=== PATIENT | female | born 1965 | race Caucasian/White ===

== ENCOUNTER 2016-06-27 12:31 | Emergency (ER) | payer OTHER ==
--- NOTE | 2016-06-27 15:00 | REP ---
FOUR VIEW LEFT HAND SERIES: 06/27/2016 INDICATION: Trauma. COMPARISON: Left hand series 09/10/2014. FINDINGS: There is no acute fracture, subluxation or dislocation within the left hand. Small nonspecific subchondral cystic changes again noted within the 3rd metacarpal head. The carpal bones are without fracture or displacement. A few small nonspecific subchondral cystic changes are seen in the carpal bones. There is mild to moderate osteoarthritis at the 1st carpometacarpal joint. IMPRESSION: No acute fracture or dislocation. Nonspecific arthritic changes within the left hand, yet most pronounced at the 1st carpometacarpal joint. MTDD
--- NOTE | 2016-06-27 15:09 | EDDOCDS ---
Nurse's Notes [facility] Name: Leonora David Age: 51 yrs Sex: Female : 1965 Arrival Date: 06/27/2016 Time: 12:31 Bed PR Private MD: Aguila Reyes A. Diagnosis: Pain in hand and fingers Presentation: 06/27 12:35 Presenting complaint: Patient states: reports carrying case of water yesterday and ead onset of left hand pain since. Reports hx of fracture to same hand. No obvious swelling or deformity noted. Adult Sepsis Screening: The patient does not have new or worsening altered mentation. Patient's respiratory rate is less than 22. Systolic blood pressure is greater than 100. Patient has a qSOFA score of 0- Negative Sepsis Screen. Suicide/Homicide risk assessment- the patient denies having any suicidal and/or homicidal ideations and does not present with any other emotional, behavioral or mental health complaints. Status: Patient is not a donor services technician or dependent. Transition of care: patient was not received from another setting of care. 12:35 Acuity: ROSSY Level 4 ead 12:35 Method Of Arrival: Walkin/Carried/Asstd ead Triage Assessment: 12:40 General: Appears in no apparent distress, comfortable, well nourished, well groomed, ead Behavior is appropriate for age, cooperative. Pain: Location: left hand Pain currently is 5 out of 10 on a pain scale. HIV screening NA for this visit Offered previously. Derm: Skin is pink, warm & dry. Musculoskeletal: No deformity noted Swelling absent. 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 atenolol 25 mg Oral tab once daily 2. lisinopril 2.5 mg Oral tab once daily 3. Arimidex 1 mg Oral tab once daily 4. Fish Oil Unknown oral 5. Vitamin D Oral 1,000 unit daily 6. Ranitidine Unknown Oral 7. aspirin 325 mg oral tab once daily 8. Lipitor 20 mg Oral tab once daily 9. drxvbrr-dkfqpggqe-crwt oral tab daily - PMHx: Hypercholesterolemia; Hypertension; CAD; acid reflux; - PSHx: Lumpectomy; Cholecystectomy; Tubal ligation; stent placement; - Social history: Smoking status: Patient states former smoker of tobacco. No barriers to communication noted, The patient speaks fluent Solomon Islander, Speaks appropriately for age. - Family history: Not pertinent. - : The pt / caregiver states he / she is not on anticoagulants. Home medication list is obtained from the patient. - Exposure Risk Screening:: None identified. Screenin:40 Screening information is obtained from the patient. Fall risk: No risks identified. ead Assistance ADL's: requires no assistance with activities of daily living. Abuse/DV Screen: The patient / caregiver reports he/she is: not in a situation that causes fear, pain or injury. Nutritional screening: No deficits noted. Advance Directives: Currently, there is no health care proxy. There is no active DNR order. There is no living will. There is no Power of Um Specialist. home support is adequate. Assessment: 13:25 General: Appears in no apparent distress, comfortable, Behavior is appropriate for age, ead cooperative, pleasant. Musculoskeletal: No deformity noted Swelling absent Reports pain in left hand. 15:06 General: Appears in no apparent distress, comfortable, Behavior is appropriate for age, mlb1 cooperative. Pain: Location: left thumb Pain currently is 5 out of 10 on a pain scale. Musculoskeletal: Circulation, motion, and sensation intact Capillary refill < 3 seconds in left fingers. Vital Signs: 12:33 BP 108 / 59; Pulse 76; Resp 18 S; Temp 98.7(O); Pulse Ox 97% on R/A; Weight 91.17 kg gr2 (R); Height 5 ft. 3 in. (160.02 cm) (R); Pain 6/10; 15:07 BP 125 / 85; Pulse 88; Resp 16; Temp 99.0(TE); Pulse Ox 99% on R/A; Pain 5/10; mlb1 12:33 Body Mass Index 35.61 (91.17 kg, 160.02 cm) gr2 Vitals: 12:33 Log In Time: June 27, 2016 at 12:33. gr2 ED Course: 12:33 Patient visited by Lio Garza. gr2 12:33 Aguila Reyes is Private Physician. gr2 12:33 Patient moved to Waiting gr2 12:35 Patient visited by Lio Garza. gr2 12:35 Patient moved to Pre RCE gr2 12:36 Triage Initiated ead 13:23 Patient moved to Triage 3 ead 13:25 Patient visited by Dianelys Man,RN. ead 13:33 [facility] btw 13:33 Sara Hines MD is Attending Physician. btw 13:33 Patient visited by Aniket Soriano PA. btw 13:45 Patient moved to TR2 ead 14:21 [facility] Payment Agreement was scanned into [employer] and attached to record. lg 14:38 Patient moved to PR2 / 26 jrd [facility] btw 15:06 No IV's were initiated during this patient's visit. No procedures done that require mlb1 assistance. 15:08 The patient / caregiver is instructed regarding the plan of care and ED course. mlb1 Order Results: There are currently no results for this order. Outcome: 15:01 Discharge ordered by Provider. btw 15:06 Discharge Assessment: Patient awake, alert and oriented x 3. No cognitive and/or mlb1 functional deficits noted. Patient verbalized understanding of disposition instructions. patient administered narcotics - no. The following High Risk Discharge criteria are identified: None. Discharged to home ambulatory. Condition: good. Discharge instructions given to patient, Instructed on discharge instructions, follow up and referral plans. Demonstrated understanding of instructions, Pt was receptive of discharge instructions/ teaching. No special radiology studies were completed. Property sent home with patient. 15:08 Patient left the ED. mlb1 Signatures: Sundar Mcclure, Reg Reg lg Cipriano Wilson RN RN mlb1 Aniket Soriano PA PA btw Lio Garza gr2 Dianelys Man,RN RN ead Dylan Tena, DEPUTY CORONER INVESTIGATOR DEPUTY CORONER INVESTIGATOR jrd MTDD
--- NOTE | 2016-06-27 15:09 | EDDOCDS ---
Physician Documentation [facility] Name: Leonora David Age: 51 yrs Sex: Female : 1965 Arrival Date: 06/27/2016 Time: 12:31 Bed PR Private MD: Aguila Reyes A. Disposition: 06/27/16 15:01 Discharged to Home/Self Care. Impression: Pain in hand and fingers. - Condition is Stable. - Discharge Instructions: Thumb Sprain. - Medication Reconciliation, Local Pharmacy Hours form. - Follow up: Orthopaedics, [facility]; When: Call to arrange an appointment; Reason: Further diagnostic work-up, Recheck today's complaints, Continuance of care. - Problem is new. - Symptoms are unchanged. Historical: - Allergies: Adhesives; Tessalon Perles; - Home Meds: 1. atenolol 25 mg Oral tab once daily 2. lisinopril 2.5 mg Oral tab once daily 3. Arimidex 1 mg Oral tab once daily 4. Fish Oil Unknown oral 5. Vitamin D Oral 1,000 unit daily 6. Ranitidine Unknown Oral 7. aspirin 325 mg oral tab once daily 8. Lipitor 20 mg Oral tab once daily 9. sctltty-dawobkhxd-iawu oral tab daily - PMHx: Hypercholesterolemia; Hypertension; CAD; acid reflux; - PSHx: Lumpectomy; Cholecystectomy; Tubal ligation; stent placement; - Social history: Smoking status: Patient states former smoker of tobacco. No barriers to communication noted, The patient speaks fluent Omani, Speaks appropriately for age. - Family history: Not pertinent. - : The pt / caregiver states he / she is not on anticoagulants. Home medication list is obtained from the patient. - Exposure Risk Screening:: None identified. 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 3 in. (160.02 cm) (R); Pain 6/10; 15:07 BP 125 / 85; Pulse 88; Resp 16; Temp 99.0(TE); Pulse Ox 99% on R/A; Pain 5/10; mlb1 12:33 Body Mass Index 35.61 (91.17 kg, 160.02 cm) gr2 MDM: 13:46 Hand, Complete Ordered. EDMS 13:54 Financial registration complete. lg 14:21 [facility] Payment Agreement was scanned into [employer] and attached to record. lg 14:35 Splint Affected Extremity ordered. btw Signatures: Dispatcher [employer] EDMS Sundar Mcclure, Reg Reg lg Cipriano Wilson RN RN mlb1 Aniket Soriano PA PA btw Dianelys Man,RN RN ead The chart was reviewed and I authenticate all verbal orders and agree with the evaluation and treatment provided.Attachments: 14:21 [facility] Payment Agreement lg MTDD
--- NOTE | 2016-06-29 16:08 | EDDOCDS ---
Physician Documentation [facility] Name: Leonora David Age: 51 yrs Sex: Female : 1965 Arrival Date: 06/27/2016 Time: 12:31 Bed PR Private MD: Aguila Reyes A. Disposition: 06/27/16 15:01 Discharged to Home/Self Care. Impression: Pain in hand and fingers. - Condition is Stable. - Discharge Instructions: Thumb Sprain. - Medication Reconciliation, Local Pharmacy Hours form. - Follow up: Orthopaedics, [facility]; When: Call to arrange an appointment; Reason: Further diagnostic work-up, Recheck today's complaints, Continuance of care. - Problem is new. - Symptoms are unchanged. Historical: - Allergies: Adhesives; Tessalon Perles; - Home Meds: 1. atenolol 25 mg Oral tab once daily 2. lisinopril 2.5 mg Oral tab once daily 3. Arimidex 1 mg Oral tab once daily 4. Fish Oil Unknown oral 5. Vitamin D Oral 1,000 unit daily 6. Ranitidine Unknown Oral 7. aspirin 325 mg oral tab once daily 8. Lipitor 20 mg Oral tab once daily 9. nhkhies-vwlqvskya-lpvq oral tab daily - PMHx: Hypercholesterolemia; Hypertension; CAD; acid reflux; - PSHx: Lumpectomy; Cholecystectomy; Tubal ligation; stent placement; - Social history: Smoking status: Patient states former smoker of tobacco. No barriers to communication noted, The patient speaks fluent Latvian, Speaks appropriately for age. - Family history: Not pertinent. - : The pt / caregiver states he / she is not on anticoagulants. Home medication list is obtained from the patient. - Exposure Risk Screening:: None identified. 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 3 in. (160.02 cm) (R); Pain 6/10; 15:07 BP 125 / 85; Pulse 88; Resp 16; Temp 99.0(TE); Pulse Ox 99% on R/A; Pain 5/10; mlb1 12:33 Body Mass Index 35.61 (91.17 kg, 160.02 cm) gr2 MDM: 13:46 Hand, Complete Ordered. EDMS 13:54 Financial registration complete. lg 14:21 COUNTS INCLUDE 234 BEDS AT THE [facility] Payment Agreement was scanned into [employer] and attached to record. lg 14:35 Splint Affected Extremity ordered. btw 06/28 12:13 T-Sheet-- Draft Copy was scanned into [employer] and attached to record. gb Signatures: Dispatcher [employer] EDMS Jasmin Perez, Reg Reg gb Sundar Mcclure, Reg Reg lg Cipriano Wilson RN RN mlb1 Aniket Soriano PA PA btw Dianelys Man,RN RN miriam The chart was reviewed and I authenticate all verbal orders and agree with the evaluation and treatment provided.Attachments: 06/27 14:21 COUNTS INCLUDE 234 BEDS AT THE [facility] Payment Agreement lg 06/28 12:13 T-Sheet-- Draft Copy gb Chart Complete MTDD
--- NOTE | 2016-06-29 16:08 | EDDOCDS ---
Nurse's Notes [facility] Name: Leonora David Age: 51 yrs Sex: Female : 1965 Arrival Date: 06/27/2016 Time: 12:31 Bed PR Private MD: Aguila Reyes A. Diagnosis: Pain in hand and fingers Presentation: 06/27 12:35 Presenting complaint: Patient states: reports carrying case of water yesterday and ead onset of left hand pain since. Reports hx of fracture to same hand. No obvious swelling or deformity noted. Adult Sepsis Screening: The patient does not have new or worsening altered mentation. Patient's respiratory rate is less than 22. Systolic blood pressure is greater than 100. Patient has a qSOFA score of 0- Negative Sepsis Screen. Suicide/Homicide risk assessment- the patient denies having any suicidal and/or homicidal ideations and does not present with any other emotional, behavioral or mental health complaints. Status: Patient is not a conference service coordinator or dependent. Transition of care: patient was not received from another setting of care. 12:35 Acuity: ROSSY Level 4 ead 12:35 Method Of Arrival: Walkin/Carried/Asstd ead Triage Assessment: 12:40 General: Appears in no apparent distress, comfortable, well nourished, well groomed, ead Behavior is appropriate for age, cooperative. Pain: Location: left hand Pain currently is 5 out of 10 on a pain scale. HIV screening NA for this visit Offered previously. Derm: Skin is pink, warm & dry. Musculoskeletal: No deformity noted Swelling absent. 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 atenolol 25 mg Oral tab once daily 2. lisinopril 2.5 mg Oral tab once daily 3. Arimidex 1 mg Oral tab once daily 4. Fish Oil Unknown oral 5. Vitamin D Oral 1,000 unit daily 6. Ranitidine Unknown Oral 7. aspirin 325 mg oral tab once daily 8. Lipitor 20 mg Oral tab once daily 9. xgerpjb-jjnmftmjb-exyr oral tab daily - PMHx: Hypercholesterolemia; Hypertension; CAD; acid reflux; - PSHx: Lumpectomy; Cholecystectomy; Tubal ligation; stent placement; - Social history: Smoking status: Patient states former smoker of tobacco. No barriers to communication noted, The patient speaks fluent Citizen Of [place], Speaks appropriately for age. - Family history: Not pertinent. - : The pt / caregiver states he / she is not on anticoagulants. Home medication list is obtained from the patient. - Exposure Risk Screening:: None identified. Screenin:40 Screening information is obtained from the patient. Fall risk: No risks identified. ead Assistance ADL's: requires no assistance with activities of daily living. Abuse/DV Screen: The patient / caregiver reports he/she is: not in a situation that causes fear, pain or injury. Nutritional screening: No deficits noted. Advance Directives: Currently, there is no health care proxy. There is no active DNR order. There is no living will. There is no Power of Housekeeping Room Attendant. home support is adequate. Assessment: 13:25 General: Appears in no apparent distress, comfortable, Behavior is appropriate for age, ead cooperative, pleasant. Musculoskeletal: No deformity noted Swelling absent Reports pain in left hand. 15:06 General: Appears in no apparent distress, comfortable, Behavior is appropriate for age, mlb1 cooperative. Pain: Location: left thumb Pain currently is 5 out of 10 on a pain scale. Musculoskeletal: Circulation, motion, and sensation intact Capillary refill < 3 seconds in left fingers. Vital Signs: 12:33 BP 108 / 59; Pulse 76; Resp 18 S; Temp 98.7(O); Pulse Ox 97% on R/A; Weight 91.17 kg gr2 (R); Height 5 ft. 3 in. (160.02 cm) (R); Pain 6/10; 15:07 BP 125 / 85; Pulse 88; Resp 16; Temp 99.0(TE); Pulse Ox 99% on R/A; Pain 5/10; mlb1 12:33 Body Mass Index 35.61 (91.17 kg, 160.02 cm) gr2 Vitals: 12:33 Log In Time: June 27, 2016 at 12:33. gr2 ED Course: 12:33 Patient visited by Lio Garza. gr2 12:33 Aguila Reyes is Private Physician. gr2 12:33 Patient moved to Waiting gr2 12:35 Patient visited by Lio Garza. gr2 12:35 Patient moved to Pre RCE gr2 12:36 Triage Initiated ead 13:23 Patient moved to Triage 3 ead 13:25 Patient visited by Dainelys Man RN. ead 13:33 Aniket Soriano PA is PHCP. btw 13:33 Sara Hines MD is Attending Physician. btw 13:33 Patient visited by Aniket Soriano PA. btw 13:45 Patient moved to TR2 ead 14:21 [facility]END[facility] TO [facility] Payment Agreement was scanned into [employer] and attached to record. lg 14:38 Patient moved to PR2 / 26 jrd 15:01 [facility] btw 15:06 No IV's were initiated during this patient's visit. No procedures done that require mlb1 assistance. 15:08 The patient / caregiver is instructed regarding the plan of care and ED course. mlb1 15:26 Hand, Complete Returned. EDMS 06/28 12:13 T-Sheet-- Draft Copy was scanned into [employer] and attached to record. gb Order Results: Radiology Order: Hand, Complete Test: Hand, Complete REASON FOR EXAMINATION: Trauma; ; FOUR VIEW LEFT HAND SERIES: 06/27/2016; ; INDICATION: Trauma.; ; COMPARISON: Left hand series 09/10/2014.; ; FINDINGS: There is no acute fracture, subluxation or dislocation within the left; hand. Small nonspecific subchondral cystic changes again noted within the 3rd; metacarpal head. The carpal bones are without fracture or displacement. A few; small nonspecific subchondral cystic changes are seen in the carpal bones.; There; is mild to moderate osteoarthritis at the 1st carpometacarpal joint.; ; IMPRESSION:; No acute fracture or dislocation.; Nonspecific arthritic changes within the left hand, yet most pronounced at the; 1st carpometacarpal joint.; ; ; MTDD Outcome: 06/27 15:01 Discharge ordered by Provider. btw 15:06 Discharge Assessment: Patient awake, alert and oriented x 3. No cognitive and/or mlb1 functional deficits noted. Patient verbalized understanding of disposition instructions. patient administered narcotics - no. The following High Risk Discharge criteria are identified: None. Discharged to home ambulatory. Condition: good. Discharge instructions given to patient, Instructed on discharge instructions, follow up and referral plans. Demonstrated understanding of instructions, Pt was receptive of discharge instructions/ teaching. No special radiology studies were completed. Property sent home with patient. 15:08 Patient left the ED. mlb1 Signatures: Dispatcher [employer] EDMS Jasmin Perez, Reg Reg gb Sundar Mcclure, Reg Reg lg Steve, Cipriano Pisano, RN RN mlb1 Aniket Soriano PA PA btw Lio Garza gr2 Dianelys Man,RN RN Dylan Escalante PCA PCA jrwilmer Chart Complete MTDD
--- NOTE | 2016-06-29 16:08 | EDDOCDS ---
Physician Documentation [facility] Name: Leonora David Age: 51 yrs Sex: Female : 1965 Arrival Date: 06/27/2016 Time: 12:31 Bed PR Private MD: Aguila Reyes A. Disposition: 06/27/16 15:01 Discharged to Home/Self Care. Impression: Pain in hand and fingers. - Condition is Stable. - Discharge Instructions: Thumb Sprain. - Medication Reconciliation, Local Pharmacy Hours form. - Follow up: Orthopaedics, [facility]; When: Call to arrange an appointment; Reason: Further diagnostic work-up, Recheck today's complaints, Continuance of care. - Problem is new. - Symptoms are unchanged. Historical: - Allergies: Adhesives; Tessalon Perles; - Home Meds: 1. atenolol 25 mg Oral tab once daily 2. lisinopril 2.5 mg Oral tab once daily 3. Arimidex 1 mg Oral tab once daily 4. Fish Oil Unknown oral 5. Vitamin D Oral 1,000 unit daily 6. Ranitidine Unknown Oral 7. aspirin 325 mg oral tab once daily 8. Lipitor 20 mg Oral tab once daily 9. ymcipcf-bigzhyihv-ziev oral tab daily - PMHx: Hypercholesterolemia; Hypertension; CAD; acid reflux; - PSHx: Lumpectomy; Cholecystectomy; Tubal ligation; stent placement; - Social history: Smoking status: Patient states former smoker of tobacco. No barriers to communication noted, The patient speaks fluent Iraqi, Speaks appropriately for age. - Family history: Not pertinent. - : The pt / caregiver states he / she is not on anticoagulants. Home medication list is obtained from the patient. - Exposure Risk Screening:: None identified. 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 3 in. (160.02 cm) (R); Pain 6/10; 15:07 BP 125 / 85; Pulse 88; Resp 16; Temp 99.0(TE); Pulse Ox 99% on R/A; Pain 5/10; mlb1 12:33 Body Mass Index 35.61 (91.17 kg, 160.02 cm) gr2 MDM: 13:46 Hand, Complete Ordered. EDMS 13:54 Financial registration complete. lg 14:21 [facility] Payment Agreement was scanned into [employer] and attached to record. lg 14:35 Splint Affected Extremity ordered. btw 06/28 12:13 T-Sheet-- Draft Copy was scanned into [employer] and attached to record. gb Signatures: Dispatcher [employer] EDMS Jasmin Perez, Reg Reg gb Sundar Mcclure, Reg Reg lg Cipriano Wilson RN RN mlb1 Aniket Soriano PA PA btw Dianelys Man,RN RN miriam The chart was reviewed and I authenticate all verbal orders and agree with the evaluation and treatment provided.Attachments: 06/27 14:21 [facility] Payment Agreement lg 06/28 12:13 T-Sheet-- Draft Copy gb Chart Complete MTDD
== END 2016-06-27 15:08 | disposition home or self-care (01) ==
LOC: M ED 12:31
DX: S63.062A Subluxation of metacarpal (bone), proximal end of left hand, initial encounter (principal); X50.9XXA Other and unspecified overexertion or strenuous movements or postures, initial encounter; Y92.89 Other specified places as the place of occurrence of the external cause; Y93.89 Activity, other specified; Y99.0 Civilian activity done for income or pay; E78.00 Pure hypercholesterolemia, unspecified; I10 Essential (primary) hypertension; I25.10 Atherosclerotic heart disease of native coronary artery without angina pectoris; K21.9 Gastro-esophageal reflux disease without esophagitis; Z87.891 Personal history of nicotine dependence; Z79.899 Other long term (current) drug therapy; Z79.82 Long term (current) use of aspirin; Z88.8 Allergy status to other drugs, medicaments and biological substances

== ENCOUNTER → 2016-12-06 | Outpatient (CLI) | payer OTHER ==
--- NOTE | 2016-12-06 17:40 | REP ---
Clinical: Trauma. Technique: AP, lateral, bilateral oblique views of the right foot. Findings: There is an oblique fracture of the fifth metatarsal bone of indeterminate age. No other acute fracture dislocation is appreciated age related changes noted no subcutaneous emphysema or radiodense foreign body. Lateral view demonstrates small calcaneal heal spur. Impression: Oblique fracture through the fifth metatarsal bone of indeterminate age. Signed by Rodger Silveira MD 12/06/2016 05:31 P
== END ==
LOC: M RAD 16:56
PROVIDERS: ATTEND Physician Assistant Medical
DX: S92.351A Displaced fracture of fifth metatarsal bone, right foot, initial encounter for closed fracture (principal); X58.XXXA Exposure to other specified factors, initial encounter; Y92.89 Other specified places as the place of occurrence of the external cause; Y93.89 Activity, other specified; Y99.8 Other external cause status

== ENCOUNTER → 2017-03-27 | Outpatient (CLI) | payer OTHER ==
--- NOTE | 2017-03-27 19:20 | REP ---
RIGHT CLAVICLE: 03/27/2017. Clinical history: Injury to right clavicle and shoulder while at work. I do note a history of left breast carcinoma with multi modality treatment back in 2006. Findings: There were no prior studies. There is a mid shaft fracture of the right clavicle. There appear to be scattered lucencies in the bone and loss of some cortical margins. Lytic lesion is seen near the expected position of the coracoclavicular ligaments. The AC joint shows some degenerative change. Visualized ribs, scapula and humerus are without focal lesion or fracture. Impression: 1. There is a mid shaft fracture of the clavicle with a 1/3 to 1/2 shaft width inferior displacement of the lateral fragment. The AC joint is not disrupted. However, the bone appears abnormal and I am suspicious for pathologic fracture. The patient does have a history of breast carcinoma 10 years ago. I could not exclude pathologic bone with sclerotic and lytic changes in the bone, subtle but with loss of cortex and some scattered lucencies. Further evaluation and workup will be necessary. A wet reading was provided per request at the time of the examination. Signed by Franko Arrington MD 03/27/2017 08:16 P
== END ==
LOC: M WUC 18:23
PROVIDERS: ATTEND Physician Assistant
DX: M25.511 Pain in right shoulder (principal)

== ENCOUNTER → 2017-06-16 | Outpatient (CLI) | payer OTHER | LOC: M WHC 10:02 | DX: M81.0 Age-related osteoporosis without current pathological fracture (principal) ==

== ENCOUNTER → 2017-07-04 | Outpatient (CLI) | payer OTHER ==
[2017-07-04 14:58] LABS: BASO # 0.1 10^3/uL (0.0-0.2); BASO % 0.7 % (0.0-1.0); EOS # 0.1 10^3/uL (0.0-0.50); EOS % 1.1 % (0.0-3.0); HEMATOCRIT 41.8 % (36.0-47.0); HEMOGLOBIN 13.8 g/dl (12.0-16.0); IMMATURE GRANULOCYTE % 0.5 % (0-0); LYMPH # 3.6 10^3/uL (1.5-4.5); LYMPH % 40.9 % (24.0-44.0); MEAN CORPUSCULAR HEMOGLOBIN 30.1 pg (27.0-33.0); MEAN CORPUSCULAR VOLUME 91.3 fl (80.0-96.0); MONO # 0.9 10^3/uL (0.0-0.8); MONO % 9.6 % (0.0-5.0); NEUTROPHILS # 4.2 10^3/uL (1.8-7.7); NEUTROPHILS % 47.2 % (36.0-66.0); PLATELET COUNT, AUTOMATED 294 10^3/uL (150-450); RED BLOOD COUNT 4.58 10^6/uL (4.00-5.40); WHITE BLOOD COUNT 8.8 10^3/uL (4.0-10.0)
[2017-07-04 15:02] LABS: ESTIMATED AVERAGE GLUCOSE 157 MG/DL (60-110); HEMOGLOBIN A1c 7.1 %
[2017-07-04 15:15] LABS: ALBUMIN 3.9 GM/DL (3.2-5.2); ALBUMIN/GLOBULIN RATIO 1.26 (1.00-1.93); ALKALINE PHOSPHATASE 89 U/L (45-117); ALT/SGPT 37 U/L (12-78); ANION GAP 5 MEQ/L (8-16); AST/SGOT 22 U/L (7-37); BILIRUBIN,TOTAL 0.5 MG/DL (0.2-1.0); BLOOD UREA NITROGEN 14 MG/DL (7-18); CALCIUM LEVEL 9.4 MG/DL (8.5-10.1); CARBON DIOXIDE LEVEL 31 MEQ/L (21-32); CHLORIDE LEVEL 103 MEQ/L (98-107); CREATININE FOR GFR 0.57 MG/DL (0.55-1.02); GLOMERULAR FILTRATION RATE > 60.0 (>51); GLUCOSE, FASTING 138 MG/DL (70-100); POTASSIUM SERUM 4.8 MEQ/L (3.5-5.1); SODIUM LEVEL 139 MEQ/L (136-145)
[2017-07-04 15:22] LABS: TOTAL 25(OH) VITAMIN D 26.2 NG/ML (30.0-100.0)
== END ==
LOC: M SMT 12:03
DX: E11.9 Type 2 diabetes mellitus without complications (principal); Z79.899 Other long term (current) drug therapy
CPT/HCPCS: 80053

== ENCOUNTER → 2017-07-15 | Outpatient (REF) | payer OTHER ==
[2017-07-15 13:02] LABS: PTH INTACT 24.7 PG/ML (14.0-72.0)
== END ==
LOC: M LABDRAW1 10:35
DX: M85.9 Disorder of bone density and structure, unspecified (principal)

== ENCOUNTER → 2018-01-12 | Outpatient (CLI) | payer OTHER | LOC: M WUC 11:19 | DX: R05 Cough (principal) | CPT/HCPCS: 71046 ==

== ENCOUNTER → 2018-01-13 | Outpatient (REF) | payer OTHER ==
[2018-01-13 18:53] LABS: INR 0.97
[2018-01-13 18:54] LABS: PARTIAL THROMBOPLASTIN TIME 27.1 SECONDS (25.4-37.6)
[2018-01-13 20:00] LABS: CA15-3 ANTIGEN 21.7 U/ML (<32.4)
[2018-01-16 00:08] LABS: CA 27.29 33.2 U/mL (0.0-38.6)
== END ==
LOC: M LAB REF 17:08
DX: Z08 Encounter for follow-up examination after completed treatment for malignant neoplasm (principal); Z85.3 Personal history of malignant neoplasm of breast; Z87.81 Personal history of (healed) traumatic fracture; Z87.312 Personal history of (healed) stress fracture

== ENCOUNTER → 2018-01-19 | Outpatient (CLI) | payer OTHER ==
[~2018-01-19] MED LIST: LIDOCAINE 1% MDV 20ML VIAL As Ordered
== END ==
LOC: M RADPRO 12:14
DX: C79.51 Secondary malignant neoplasm of bone (principal); Z79.4 Long term (current) use of insulin; Z79.899 Other long term (current) drug therapy; E11.9 Type 2 diabetes mellitus without complications; Z88.8 Allergy status to other drugs, medicaments and biological substances; Z91.048 Other nonmedicinal substance allergy status; Z85.3 Personal history of malignant neoplasm of breast
CPT/HCPCS: 20220

== ENCOUNTER → 2018-01-20 | Outpatient (CLI) | payer OTHER | LOC: M PLARAD 07:45 | DX: C50.919 Malignant neoplasm of unspecified site of unspecified female breast (principal) | CPT/HCPCS: 78815 ==

== ENCOUNTER → 2018-01-29 | Outpatient (CLI) | payer OTHER ==
[~2018-01-29] MED LIST changes: +GASTROGRAFIN SOLUTION 30ML (Q9963) As Ordered; +ISOVUE-370 76% 100ML VIAL (Q9967) As Ordered; -LIDOCAINE 1% MDV 20ML VIAL As Ordered
== END ==
LOC: M RAD 08:21
DX: C50.919 Malignant neoplasm of unspecified site of unspecified female breast (principal); I25.10 Atherosclerotic heart disease of native coronary artery without angina pectoris; I70.0 Atherosclerosis of aorta; K76.0 Fatty (change of) liver, not elsewhere classified; M19.041 Primary osteoarthritis, right hand; M19.042 Primary osteoarthritis, left hand; M19.071 Primary osteoarthritis, right ankle and foot
CPT/HCPCS: Q9963

== ENCOUNTER → 2018-02-12 | Outpatient (REF) | payer OTHER ==
[2018-02-14 00:08] LABS: CA 27.29 25.6 U/mL (0.0-38.6)
== END ==
LOC: M LAB REF 14:17
DX: C79.51 Secondary malignant neoplasm of bone (principal); Z85.3 Personal history of malignant neoplasm of breast; C50.212 Malignant neoplasm of upper-inner quadrant of left female breast; Z17.0 Estrogen receptor positive status [ER+]

== ENCOUNTER 2018-02-13 09:55 | Outpatient (RCR) | payer OTHER | END 2018-03-08 | LOC: M ONCR 09:55 | DX: C79.51 Secondary malignant neoplasm of bone (principal); C50.212 Malignant neoplasm of upper-inner quadrant of left female breast | CPT/HCPCS: 77300 ==

== ENCOUNTER 2018-03-09 09:49 | Outpatient (RCR) | payer OTHER | END 2018-04-08 | LOC: M ONCR 03-10 09:47 | DX: C79.51 Secondary malignant neoplasm of bone (principal); C50.212 Malignant neoplasm of upper-inner quadrant of left female breast | CPT/HCPCS: 77336 ==

== ENCOUNTER 2018-04-06 12:01 | Outpatient (RCR) | payer OTHER | END 2018-04-08 | LOC: M PT 12:01 | DX: Z51.89 Encounter for other specified aftercare (principal); M84.511A Pathological fracture in neoplastic disease, right shoulder, initial encounter for fracture | CPT/HCPCS: 97110 ==

== ENCOUNTER → 2018-04-15 | Outpatient (CLI) | payer OTHER | LOC: M ONCR 10:09 | DX: C50.912 Malignant neoplasm of unspecified site of left female breast (principal) | CPT/HCPCS: G0463 ==

== ENCOUNTER → 2018-06-23 | Outpatient (CLI) | payer OTHER ==
[~2018-06-23] MED LIST changes: +ASPI-222 PO; +ATEN25TA PO; +ATOR40TA75 PO; +CALC600T60 PO; -GASTROGRAFIN SOLUTION 30ML (Q9963) As Ordered; -ISOVUE-370 76% 100ML VIAL (Q9967) As Ordered; +LISI-538 PO; +MAGN250T11 PO; +METF-414 PO; +VITA100066 PO
[2018-06-23 13:53] LABS: EOS % 0.7 % (0.0-3.0); HEMATOCRIT 36.1 % (36.0-47.0); HEMOGLOBIN 12.3 g/dl (12.0-15.5); LYMPH # 1.8 10^3/uL (1.5-4.5); LYMPH % 43.4 % (24.0-44.0); MEAN CORPUSCULAR HEMOGLOBIN 36.3 pg (27.0-33.0); MEAN CORPUSCULAR HGB CONC 34.1 g/dl (32.0-36.5); MEAN CORPUSCULAR VOLUME 106.5 fl (80.0-96.0); MONO # 0.7 10^3/uL (0.0-0.8); MONO % 16.1 % (0.0-5.0); NEUTROPHILS # 1.6 10^3/uL (1.8-7.7); NEUTROPHILS % 38.8 % (36.0-66.0); PLATELET COUNT, AUTOMATED 196 10^3/uL (150-450); RED BLOOD COUNT 3.39 10^6/uL (4.00-5.40); WHITE BLOOD COUNT 4.1 10^3/uL (4.0-10.0)
[2018-06-23 14:17] LABS: ALBUMIN 3.6 GM/DL (3.2-5.2); ALT/SGPT 41 U/L (12-78); BILIRUBIN,TOTAL 0.5 MG/DL (0.2-1.0); BLOOD UREA NITROGEN 13 MG/DL (7-18); CALCIUM LEVEL 9.2 MG/DL (8.5-10.1); CARBON DIOXIDE LEVEL 28 MEQ/L (21-32); CHLORIDE LEVEL 102 MEQ/L (98-107); CHOLESTEROL LEVEL 103 MG/DL (<200); CHOLESTEROL RISK RATIO 2.575 (<5); CREATININE FOR GFR 0.68 MG/DL (0.55-1.30); GLOMERULAR FILTRATION RATE > 60.0 (>51); GLUCOSE, FASTING 135 MG/DL (70-100); HDL CHOLESTEROL 40 MG/DL (>40); LDL CHOLESTEROL 38 MG/DL (<100); NON-HDL-C 63 MG/DL; POTASSIUM SERUM 4.9 MEQ/L (3.5-5.1); SODIUM LEVEL 138 MEQ/L (136-145); TOTAL PROTEIN 6.8 GM/DL (6.4-8.2); TRIGLYCERIDES LEVEL 124 MG/DL (<150)
[2018-06-23 14:42] LABS: MALB URINE SIEMENS 19.3 MG/L; MAU/CREAT RATIO 10.2 MCG/MG (0.0-30.0)
[2018-06-23 15:25] LABS: TOTAL 25(OH) VITAMIN D 36.4 NG/ML (30.0-100.0)
[2018-06-23 15:29] LABS: HEMOGLOBIN A1c 7.3 %
== END ==
LOC: M SMT 08:04
PROVIDERS: ATTEND Family Medicine
DX: E55.9 Vitamin D deficiency, unspecified (principal); E11.9 Type 2 diabetes mellitus without complications

== ENCOUNTER → 2018-08-24 | Outpatient (CLI) | payer OTHER ==
[~2018-08-24] MED LIST changes: +AMOX875T PO; +EQL50TAB4 PO; +FISH1000 PO; +IBRA125C PO; +ISOVUE-370 76% 125ML VIAL (Q9967 PER ML) As Ordered ONE; +LETR2.5T2 PO
--- NOTE | 2018-08-31 14:24 | REP ---
CT CHEST WITH IV CONTRAST: REPEAT DICTATION. HISTORY: Breast cancer. Restaging. Ill-defined opacities bilateral lower lobes on prior chest CT study, 06/05/2018. COMPARISON: Chest CT study June 05, 2018 and January 29, 2018. CT CONTRAST DOSE: 75 mL of intravenous Isovue 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 This is unchanged. There is no other visualized bony destructive lesion. The previously noted paraspinal ill-defined parenchymal opacity in the subpleural region of the lower lobes bilaterally posteriorly and medially is less prominent than on prior CT study. This is consistent with fibrosis adjacent to degenerative disc changes in the thoracic spine. No new pulmonary nodule is appreciated. No pulmonary mass lesion is observed. Vascular calcification is noted including left coronary artery vascular calcification. No other vascular abnormality is seen. No hilar or mediastinal mass or adenopathy is observed. There is moderate diffuse fatty infiltration in the liver. No adrenal lesion is seen. IMPRESSION: Stable mixed predominantly sclerotic metastatic lesion in the right clavicle. The paraspinal pattern of increased density in the lower lobes as seen previously has improved and has a linear morphology consistent with fibrosis and/or atelectasis associated with degenerative disc disease in the adjacent thoracic spine. There is fatty infiltration of the liver. Electronically Signed by Vin Moya MD 08/31/2018 02:30 P
== END ==
LOC: M RAD 13:02
PROVIDERS: ATTEND Nurse Practitioner Family
DX: C50.919 Malignant neoplasm of unspecified site of unspecified female breast (principal); C79.51 Secondary malignant neoplasm of bone; M51.84 Other intervertebral disc disorders, thoracic region; K76.0 Fatty (change of) liver, not elsewhere classified; R91.8 Other nonspecific abnormal finding of lung field; Z98.890 Other specified postprocedural states
CPT/HCPCS: 71260; 77080; Q9967

== ENCOUNTER → 2018-08-24 | Outpatient (CLI) | payer OTHER ==
[~2018-08-24] MED LIST changes: -ISOVUE-370 76% 125ML VIAL (Q9967 PER ML) As Ordered ONE
--- NOTE | 2018-08-27 13:42 | DEXA ---
AP SPINE L1 - L4 1.189 0.0 0.8 LT FEMUR TOTAL 1.096 0.7 1.4 LT NECK 1.030 -0.1 1.0 RT FEMUR TOTAL 1.029 0.2 0.8 RT NECK 0.870 -1.2 -0.2 TOTAL BODY TOTAL OTHER COMMENTS: Normal bone densitometry of the spine. Normal bone densitometry of the left hip. There is low bone density of the right hip. The increased density of the spine does represent a significant change. The increased density of the left hip does represent a significant change. The decreased density of the right hip does not represent a significant change. The density of the spine has increased 7.4% since the initial exam on 07/10/2009. The spine density has increased 2.8% since the most recent exam on 06/16/17. The density of the left hip has decreased 2.0% since the initial exam on 07/10/2009. The density of the left hip has increased 8.9% since the most recent exam on 06/16/2017. The density of the right hip has decreased 7.2% since the initial exam on 07/10/2009. The density of the right hip has decreased 0.8% since the most recent exam on 06/16/2017. FOLLOW-UP: Recommendation for the next bone density exam: 2 years. JACOB
== END ==
LOC: M WHC 10:49
PROVIDERS: ATTEND Nurse Practitioner Family
DX: C50.919 Malignant neoplasm of unspecified site of unspecified female breast (principal); M85.851 Other specified disorders of bone density and structure, right thigh

== ENCOUNTER → 2018-12-02 | Outpatient (CLI) | payer OTHER ==
[~2018-12-02] MED LIST changes: -EQL50TAB4 PO; +XGEVINJ SC; +ZINC1TAB2 PO
--- NOTE | 2018-12-02 09:30 | REP ---
Clinical: Bilateral lower extremity pain . Technique: Arce scale and color Doppler evaluation using linear high frequency transducer. Findings: Ultrasound examination of the right and left lower extremity deep venous structures from the common femoral vein to the popliteal vein demonstrates normal compressibility flow and wave patterns in response to respiration and augmentation. There is no evidence for deep venous thrombosis. Impression: No evidence for deep venous thrombosis. Electronically Signed by Rodger Silveira MD 12/02/2018 09:22 A
== END ==
LOC: M RAD 08:33
PROVIDERS: ATTEND Internal Medicine Medical Oncology
DX: M79.604 Pain in right leg (principal); M79.605 Pain in left leg

== ENCOUNTER → 2018-12-28 | Outpatient (REF) | payer OTHER ==
[2018-12-28 11:40] LABS: HEMOGLOBIN A1c 7.1 %
== END ==
LOC: M LAB REF 10:45
PROVIDERS: ATTEND Family Medicine
DX: E11.9 Type 2 diabetes mellitus without complications (principal)

== ENCOUNTER → 2019-01-19 | Outpatient (CLI) | payer OTHER ==
[~2019-01-19] MED LIST changes: +SLOWTAB2 PO
--- NOTE | 2019-01-20 09:33 | REP ---
PET/CT: History: Monitoring response to breast cancer. Comparisons: Comparison PET/CT January 20, 2018. TECHNIQUE: 51 minutes following the intravenous injection of a 7.97 mCi dose of F-18 FDG, three-dimensional PET scintigraphy is acquired from the skull base to the proximal thighs. Triplanar noncontrast CT scanning is acquired through the same anatomic range for attenuation correction, and image registration with scan parameters optimized to minimize radiation exposure to the patient. PET scintigraphy and CT datasets were fused and displayed on a workstation with multiplanar and projection display capability. PET/CT Findings: Previous study showed hypermetabolic uptake in a known bony metastasis in the right clavicle. On today's PET scintigraphy, there is no longer hypermetabolic uptake here. There is abnormal sclerosis which may represent healing and remodeling in the right clavicle and there is a nondisplaced ununited fracture in the clavicle but no hypermetabolic uptake is appreciated. Maximum standard uptake value 1.88, previously 0.9. No new skeletal focus of hypermetabolic uptake is seen. There is no other abnormal hypermetabolic uptake. There is sclerosis in the right side of the symphysis pubis without hypermetabolic uptake. This may be degenerative. It is unchanged from the prior study and it was not hypermetabolic previously. No abnormal hypermetabolic uptake is seen in the abdomen or pelvis. No abnormal hepatic uptake. Impression: No abnormal hypermetabolic uptake seen. Sclerotic changes in the known right clavicular metastasis consistent with healing and reactive mineral deposition. There is an area of sclerosis in the right symphysis also without hypermetabolic uptake. Electronically Signed by Vin Moya MD 01/20/2019 08:52 P
== END ==
LOC: M PLARAD 12:30
PROVIDERS: ATTEND Nurse Practitioner Family
DX: C50.212 Malignant neoplasm of upper-inner quadrant of left female breast (principal)

== ENCOUNTER 2019-08-08 21:17 | Emergency (ER) | payer OTHER ==
[~2019-08-08] VITALS: Ht 160 cm; Wt 93.2 kg
[~2019-08-08 21:17] MED LIST changes: -ASPI-222 PO; +ASPI-527 PO; +CLOT1CRE71
--- NOTE | 2019-08-09 00:25 | REPVR ---
PROCEDURE INFORMATION: Exam: US Duplex Left Lower Extremity Veins, Limited Exam date and time: 08/08/2019 11:43 PM Age: 54 years old Clinical indication: Pain; Other: Knee; Additional info: Erythema/warmth, edema, tender vericosity medial left knee TECHNIQUE: Imaging protocol: Real-time Duplex ultrasound of the Left Lower Extremity with 2-D hutson scale, color Doppler flow and spectral waveform analysis with image documentation. Limited exam focused on the left lower extremity veins. COMPARISON: US Duplex, Ext LOWER veins, bilat 12/02/2018 8:57 AM FINDINGS: Left deep veins: Unremarkable. The common femoral, femoral, proximal profunda femoral and popliteal veins are patent without thrombus. Normal Doppler waveforms. Normal compressibility and/or augmentation response. Left superficial veins: Unremarkable. Saphenofemoral junction is patent without thrombus. Soft tissues: Unremarkable. IMPRESSION: No acute findings. No evidence of deep vein thrombosis. Electronically signed by: Deo Solares On 08/09/2019 00:25:10 AM
[2019-08-09 00:52] VITALS: BP 132/70
== END 2019-08-09 00:56 | disposition home or self-care (01) ==
LOC: M ED 21:17
DX: I80.02 Phlebitis and thrombophlebitis of superficial vessels of left lower extremity (principal); C50.212 Malignant neoplasm of upper-inner quadrant of left female breast; F17.210 Nicotine dependence, cigarettes, uncomplicated; Z88.8 Allergy status to other drugs, medicaments and biological substances; Z79.82 Long term (current) use of aspirin; Z79.84 Long term (current) use of oral hypoglycemic drugs; Z79.899 Other long term (current) drug therapy

== ENCOUNTER → 2019-08-12 | Outpatient (CLI) | payer OTHER ==
--- NOTE | 2019-08-12 18:22 | REP ---
LEFT KNEE SERIES: Five views of the left knee performed. No acute fracture or dislocation is seen. There is mild medial joint space narrowing, subchondral sclerosis and spurring. There is mild spurring of the lateral patellar facet. There is superior patellar spurring. There is a mild to moderate joint effusion. There are vascular calcifications posteriorly. IMPRESSION: Mild degenerative changes. Mild to moderate joint effusion. Electronically Signed by Dane Arce MD 08/13/2019 05:03 P
== END ==
LOC: M WUC 15:31
PROVIDERS: ATTEND Family Medicine
DX: M25.562 Pain in left knee (principal)

== ENCOUNTER → 2021-01-12 | Outpatient (CLI) | payer OTHER ==
[~2021-01-12] MED LIST changes: +ESSE250T PO; -LISI-538 PO; +LISI20TA33 PO; +VITA1CAP25 PO
--- NOTE | 2021-01-12 14:29 | REPMRS ---
Patient History The patient states she had a clinical breast exam in December 2020. Patient is postmenopausal, has history of other cancer at age 52, has history of cancer in the left breast at age 41, had previous chest radiation therapy at age 41, and had previous chemotherapy at age 41. Family history of colorectal cancer at age 50 or over in father. Benign US guided breast biopsy of the left breast, May 21, 2013. Taking unspecified hormones for 3 years beginning at age 52. 20lb weight loss. Patient states no breast complaints today. Patient has signed MRS History Sheet. Digital Woman Screen Mammo: January 12, 2021 - Exam #: [id number] Bilateral CC and MLO view(s) were taken. Technologist: RT Pee Prior study comparison: May 21, 2013, left breast digital mammo diagnostic unilateral, performed at [facility]. FINDINGS: There are scattered fibroglandular densities. Screening. This patient?s lifetime risk for the development of invasive breast cancer can?t be calculated due to her age (less than 20 or greater than 85 years) or a prior history of in situ or invasive breast cancer. Digital screening (2D) mammography was performed bilaterally. Additionally, breast tomosynthesis (3D mammography) was performed bilaterally in the CC and MLO projections. Today's exam was compared to the prior exam/exams. By history, the patient has no complaints of a palpable breast abnormality or other significant breast complaints. The patient is status post lumpectomy/chemo radiation therapy due to breast carcinoma. The breasts are unchanged in size and shape. There are no gerardo-areas of internal architectural distortion. There are no gerardo-soft tissue densities or areas of spiculation. There is unchanged post radiation skin thickening. Once again, stable benign appearing calcifications are seen. IMPRESSION: BI-RADS Category 2- Benign Findings. There is no evidence of malignant alteration of the breasts. Routine bilateral screening mammogram recommended at its regularly scheduled annual interval. The Volpara volumetric breast density category is B, there are scattered areas of fibroglandular densities. This mammogram was read with the assistance of [employer],an FDA approved computer aided detection system for mammography. Negative x-ray reports should not delay surgical consultation if a dominant or clinically suspicious mass is present. Not all breast cancers can be identified by mammography. Therefore, we recommend that you continue to perform regular breast self-examination and physical examination and then promptly contact your physician of any concerns or changes. Adenosis and dense breasts may obscure an underlying neoplasm. Assessment: BI-RADS/ACR category 2 mammogram. Benign Findings. Recommendation Routine screening mammogram of both breasts in 1 year. Electronically Signed By: Brennan Sylvester DO 01/12/21 [id number]
== END ==
LOC: M WHC 13:14
PROVIDERS: ATTEND Internal Medicine Medical Oncology
DX: Z12.31 Encounter for screening mammogram for malignant neoplasm of breast (principal)

== ENCOUNTER → 2024-12-30 | Outpatient (CLI) | payer MEDICARE, OTHER ==
[~2024-12-30] MED LIST changes: -ESSE250T PO; +MAGN250T17 PO
== END ==
LOC: M RAD 11:04
PROVIDERS: ATTEND Podiatrist
DX: I70.233 Atherosclerosis of native arteries of right leg with ulceration of ankle (principal)